=== PATIENT | male | born 1975 | race Caucasian/White ===

== ENCOUNTER → 2024-06-17 13:28 | Outpatient (CLI) | payer OTHER, SELFPAY ==
--- NOTE | 2024-06-17 13:30 | DI.ECHO.S_ITS ---
[facility] +---------+ [facility] : : [address] : : [place] : : [id number] : : Phone: [phone] Echocardiogram Report + + :Name: NATY DESOUZA Study Date: 06/17/2024 Height: 70 in : :[facility] ReadingLocation: Weight: 300 lb : : Gender: Male BSA: 2.5 m2 : :: 1975 Age: 49 yrs BP: 159/84 mmHg: :Reason For Study: VENTRICULAR PREMATURE DEPOLARIZATION : :Ordering Physician: FREDERICK, : :LAURITA Performed By: Daren Coronel : :Referring: UNSPECIFIED : + + Interpretation Summary 1. The left ventricular contractility is normal. Estimated ejection fraction is greater than 60% with no segmental wall motion abnormalities. Mild concentric LVH. Unable to comment on diastolic function. 2. The right ventricular contractility is normal. 3. All cardiac chambers are of normal size. 4. No significant valvular abnormalities. 5. No obvious intracardiac shunts. 6. No obvious intracardiac masses nor thrombi. 7. No hemodynamically significant pericardial effusion. 8. Low right-sided filling pressures. Conclusion: Normal biventricular systolic function with no significant valvular abnormalities. Procedure: A two-dimensional transthoracic echocardiogram with color flow and Doppler was performed. The study quality was technically good. There is no prior echocardiogram noted for this patient. The patient was in normal sinus rhythm during the exam. Left Ventricle: The left ventricle is normal in size. Left ventricular wall thickness is mildly increased. There is no ventricular septal defect visualized. The ejection fraction is estimated to be 60-65%. There are no focal wall motion abnormalities. Right Ventricle: The right ventricle is normal in size and function. Atria: The left atrial size is normal. Right atrial size is normal. There is no Doppler evidence for an interatrial shunt. Mitral Valve: The mitral valve is normal in structure and function. There is trace mitral regurgitation. Aortic Valve: The aortic valve is trileaflet. The aortic valve opens well. The aortic valve is mildly calcified. No aortic regurgitation is present. Tricuspid Valve: The tricuspid valve is normal in structure and function. There is a trace or physiologic amount of tricuspid regurgitation. Pulmonic Valve: The pulmonic valve is normal in structure and function. There is trace pulmonic regurgitation. Great Vessels: The aortic root is normal size. The dimensions of the ascending aorta are normal. The pulmonary artery is normal size. The inferior vena cava was not visualized. Pericardium/ Pleura There is no pericardial effusion. MMode/2D Measurements & Calculations LVIDd: 4.7 cm LVOT diam: 2.2 cm LVIDs: 2.9 cm Ao root diam: 3.7 cm FS: 38.0 % asc Aorta Diam: 3.3 cm EPSS: 0.43 cm IVSd: 1.4 cm LVPWd: 1.3 cm LV campos. diameter/BSA (cm/m^2): 1.9 LV sys. diameter/BSA (cm/m^2): 1.2 LA A2 area: 22.2 cm2 RA long axis: 5.4 cm LA A4 area: 25.3 cm2 RA area: 18.0 cm2 LA length (vol): 6.6 cm RA vol: 51.3 ml LA vol: 72.5 ml RA : 20.7 ml/m2 LA vol index: 29.2 ml/m2 RVD1 (basal): 3.9 cm RVD2 (mid): 3.1 cm TAPSE: 2.6 cm Doppler Measurements & Calculations Ao V2 max: 157.5 cm/sec LVOT Max Jose: 115.8 cm/sec Ao V2 mean: 119.0 cm/sec LV V1 max P.4 mmHg Ao max P.9 mmHg LV V1 VTI: 24.5 cm Ao mean P.0 mmHg KARLO(I,D): 2.6 cm2 Ao V2 VTI: 34.9 cm KARLO(V,D): 2.7 cm2 sev ratio: 0.70 KARLO indexed to BSA (cm^2/m^2): 1.0 MV E max jose: 79.1 cm/sec PA V2 max: 91.4 cm/sec MV A max jose: 63.2 cm/sec PA V2 mean: 64.6 cm/sec MV E/A: 1.3 PA mean P.8 mmHg Med Peak E' Jose: 8.2 cm/sec PA pr(Accel): 34.5 mmHg E/E' med: 9.7 Lat Peak E' Jose: 7.0 cm/sec E/E' lat: 11.2 E/e' average: 10.5 MV dec time: 0.22 sec SV(LVOT): 89.0 ml Reading Physician:
== END ==
PROVIDERS: Referring Provider Neuromusculoskeletal Medicine, Sports Medicine; Visit Provider Neuromusculoskeletal Medicine, Sports Medicine
DX: I49.3 Ventricular premature depolarization (principal)
CPT/HCPCS: 93306